=== PATIENT | female | born 1945 | race Caucasian/White ===

== ENCOUNTER 2017-03-14 13:27 | Inpatient (IN) | payer MEDICARE, OTHER ==
[2017-03-14] MEDS ORDERED: IV VANCOMYCIN PER PHARMACY 1 EACH MISC MISCELLANE PRN (14:10)
[2017-03-14] MEDS ORDERED: SODIUM CHLORIDE 0.9% 1,000 ML IV STA (14:10)
[2017-03-14] MEDS ORDERED: KETOROLAC 30 MG/ML 1 ML VIAL IVP STA (14:11)
[2017-03-14] MEDS ORDERED: ACETAMINOPHEN IV (For NPO) 1,000 MG in EMPTY BAG 1 BAG IVPB STA (14:11)
[2017-03-14] MEDS ORDERED: VANCOMYCIN 1,500 MG in SODIUM CHLORIDE 0.9% 250 ML IVPB STA (14:17)
--- NOTE | 2017-03-14 14:23 | ED ---
General Adult HPI - General Chief complaint: Recheck/Abnormal Lab/Rx Stated complaint: Back Pain Time Seen by Provider: 03/14/17 13:49 Source: patient, RN notes reviewed, old records reviewed Mode of arrival: ambulatory Limitations: no limitations - History of Present Illness Initial comments: This is a 71-year-old female here for evaluation. This patient's presenting for evaluation of back pain, erythema. Cellulitis. Patient does have abscess, started on antibiotics yesterday, no drainage. No fevers. This increasing redness to the area. She has been taking antibiotics as prescribed with what she thinks worsening symptoms. - Related Data Home Medications Medication Instructions Recorded Confirmed Alendronate Sodium [Fosamax] 70 mg PO TU 03/14/17 03/14/17 Atorvastatin [Lipitor] 10 mg PO EMANUEL 03/14/17 03/14/17 Cholecalciferol [Vitamin D3] 1,000 unit PO DAILY 03/14/17 03/14/17 Levothyroxine Sodium [Synthroid] 100 mcg PO MOTUWETHFR 03/14/17 03/14/17 Sulfamethox-Tmp 800-160Mg [Bactrim 1 tab PO BID 03/14/17 03/14/17 DS 800-160 mg] amLODIPine BESYLATE/BENAZEPRIL 1 cap PO DAILY 03/14/17 03/14/17 [amLODIPine BESYLATE/BENAZEPRIL 5-20 mg] Allergies Allergy/AdvReac Type Severity Reaction Status Date / Time sulfamethoxazole AdvReac Abdominal Verified 03/14/17 14:30 [From Bactrim] Pain trimethoprim [From Bactrim] AdvReac Abdominal Verified 03/14/17 14:30 Pain Review of Systems ROS Statement: Those systems with pertinent positive or pertinent negative responses have been documented in the HPI. ROS Other: All systems not noted in ROS Statement are negative. Past Medical History Past Medical History: Hyperlipidemia, Thyroid Disorder History of Any Multi-Drug Resistant Organisms: None Reported Past Surgical History: Back Surgery, Hysterectomy Past Psychological History: No Psychological Hx Reported Smoking Status: Never smoker Past Alcohol Use History: None Reported Past Drug Use History: None Reported General Exam - General Exam Comments Initial Comments: This severe cellulitis with erythema and warmth to right posterior back Limitations: no limitations General appearance: alert, in no apparent distress Head exam: Present: atraumatic, normocephalic, normal inspection Eye exam: Present: normal appearance, PERRL, EOMI. Absent: scleral icterus, conjunctival injection, periorbital swelling ENT exam: Present: normal exam, mucous membranes moist Neck exam: Present: normal inspection. Absent: tenderness, meningismus, lymphadenopathy Respiratory exam: Present: normal lung sounds bilaterally. Absent: respiratory distress, wheezes, rales, rhonchi, stridor Cardiovascular Exam: Present: regular rate, normal rhythm, normal heart sounds. Absent: systolic murmur, diastolic murmur, rubs, gallop, clicks GI/Abdominal exam: Present: soft, normal bowel sounds. Absent: distended, tenderness, guarding, rebound, rigid Extremities exam: Present: normal inspection, full ROM, normal capillary refill. Absent: tenderness, pedal edema, joint swelling, calf tenderness Back exam: Present: normal inspection Neurological exam: Present: alert, oriented X3, CN II-XII intact Psychiatric exam: Present: normal affect, normal mood Skin exam: Present: warm, dry, intact, normal color. Absent: rash Course Vital Signs 03/14/17 03/14/17 13:29 14:40 Temperature 98.1 F 98.2 F Pulse Rate 98 92 Respiratory 20 16 Rate Blood Pressure 146/68 137/65 O2 Sat by Pulse 99 99 Oximetry - Reevaluation(s) Reevaluation #1: 03/14/17 15:22 Patient is in no acute distress EKG Findings - EKG Comments: EKG Findings:: EKG shows normal sinus at a rate of 99, OK 172, QRS 86, QTC 400 Medical Decision Making - Medical Decision Making 71 female the ER for evaluation. Patient was is here for evaluation of back pain. Worsening infection of back. Patient was started on Bactrim yesterday for this abscess. Patient's abscess is growing in size, erythematous growing in size and spreading around her back. Patient will be admitted for IV antibiotics and surgical evaluation - Lab Data Result diagrams: 03/14/17 14:30 03/14/17 14:30 Lab Results 03/14/17 03/14/17 03/14/17 Range/Units 14:30 14:30 14:30 WBC 10.7 H (3.8-10.6) k/uL RBC 4.10 (3.80-5.40) m/uL Hgb 13.3 (11.4-16.0) gm/dL Hct 38.5 (34.0-46.0) % MCV 93.9 (80.0-100.0) fL MCH 32.4 (25.0-35.0) pg MCHC 34.4 (31.0-37.0) g/dL RDW 12.1 (11.5-15.5) % Plt Count 210 (150-450) k/uL Neutrophils % 88 % Lymphocytes % 5 % Monocytes % 5 % Eosinophils % 1 % Basophils % 0 % Neutrophils # 9.3 H (1.3-7.7) k/uL Lymphocytes # 0.5 L (1.0-4.8) k/uL Monocytes # 0.5 (0-1.0) k/uL Eosinophils # 0.1 (0-0.7) k/uL Basophils # 0.0 (0-0.2) k/uL PT (9.0-12.0) sec INR (<1.2) APTT (22.0-30.0) sec Sodium 139 (137-145) mmol/L Potassium 4.5 (3.5-5.1) mmol/L Chloride 103 (98-107) mmol/L Carbon Dioxide 23 (22-30) mmol/L Anion Gap 13 mmol/L BUN 9 (7-17) mg/dL Creatinine 0.70 (0.52-1.04) mg/dL Est GFR (MDRD) Af Amer >60 (>60 ml/min/1.73 sqM) Est GFR (MDRD) Non-Af >60 (>60 ml/min/1.73 sqM) Glucose 129 H (74-99) mg/dL Plasma Lactic Acid Francis (0.7-2.0) mmol/L Calcium 9.3 (8.4-10.2) mg/dL Phosphorus 2.7 (2.5-4.5) mg/dL Magnesium 1.8 (1.6-2.3) mg/dL Total Bilirubin 1.2 (0.2-1.3) mg/dL AST 35 (14-36) U/L ALT 29 (9-52) U/L Alkaline Phosphatase 79 (38-126) U/L Total Creatine Kinase 69 (30-135) U/L CK-MB (CK-2) 0.6 (0.0-2.4) ng/mL CK-MB (CK-2) Rel Index 0.9 Total Protein 7.1 (6.3-8.2) g/dL Albumin 4.1 (3.5-5.0) g/dL 03/14/17 03/14/17 Range/Units 14:30 14:30 WBC (3.8-10.6) k/uL RBC (3.80-5.40) m/uL Hgb (11.4-16.0) gm/dL Hct (34.0-46.0) % MCV (80.0-100.0) fL MCH (25.0-35.0) pg MCHC (31.0-37.0) g/dL RDW (11.5-15.5) % Plt Count (150-450) k/uL Neutrophils % % Lymphocytes % % Monocytes % % Eosinophils % % Basophils % % Neutrophils # (1.3-7.7) k/uL Lymphocytes # (1.0-4.8) k/uL Monocytes # (0-1.0) k/uL Eosinophils # (0-0.7) k/uL Basophils # (0-0.2) k/uL PT 10.6 (9.0-12.0) sec INR 1.0 (<1.2) APTT 23.4 (22.0-30.0) sec Sodium (137-145) mmol/L Potassium (3.5-5.1) mmol/L Chloride (98-107) mmol/L Carbon Dioxide (22-30) mmol/L Anion Gap mmol/L BUN (7-17) mg/dL Creatinine (0.52-1.04) mg/dL Est GFR (MDRD) Af Amer (>60 ml/min/1.73 sqM) Est GFR (MDRD) Non-Af (>60 ml/min/1.73 sqM) Glucose (74-99) mg/dL Plasma Lactic Acid Francis 1.6 (0.7-2.0) mmol/L Calcium (8.4-10.2) mg/dL Phosphorus (2.5-4.5) mg/dL Magnesium (1.6-2.3) mg/dL Total Bilirubin (0.2-1.3) mg/dL AST (14-36) U/L ALT (9-52) U/L Alkaline Phosphatase (38-126) U/L Total Creatine Kinase (30-135) U/L CK-MB (CK-2) (0.0-2.4) ng/mL CK-MB (CK-2) Rel Index Total Protein (6.3-8.2) g/dL Albumin (3.5-5.0) g/dL Disposition Clinical Impression: Cellulitis, Failure of outpatient treatment Disposition: ADMITTED IP TO THIS HOSP Condition: Good Referrals: Navid Mehta DO [Primary Care Provider] - 1-2 days
[2017-03-14 14:39] LABS: Basophils % (A) 0 %; CH 31.9; CHCM 34.1; Eosinophils # (A) 0.1 k/uL (0-0.7); Eosinophils % (A) 1 %; HCT 38.5 % (34.0-46.0); HDW 2.47; HGB 13.3 gm/dL (11.4-16.0); Luc # (Auto) 0.17; Luc % (Auto) 2; Lymphocytes # (A) 0.5 k/uL (1.0-4.8); Lymphocytes % (A) 5 %; MCH 32.4 pg (25.0-35.0); MCHC 34.4 g/dL (31.0-37.0); MCV 93.9 fL (80.0-100.0); Mean Platelet Volume 7.4; Monocytes # (A) 0.5 k/uL (0-1.0); Monocytes % (A) 5 %; Neutrophils # (A) 9.3 k/uL (1.3-7.7); Neutrophils % (A) 88 %; RDW 12.1 % (11.5-15.5); WBC 10.7 k/uL (3.8-10.6); WBC (Perox) 10.92
[2017-03-14 14:55] LABS: ALT 29 U/L (9-52); AST 35 U/L (14-36); Alkaline Phosphatase 79 U/L (38-126); Anion Gap 13 mmol/L; Blood Urea Nitrogen 9 mg/dL (7-17); Calcium 9.3 mg/dL (8.4-10.2); Carbon Dioxide 23 mmol/L (22-30); Chloride 103 mmol/L (98-107); Glucose 129 mg/dL (74-99); Magnesium 1.8 mg/dL (1.6-2.3); Non-African American GFR(MDRD) >60 (>60 ml/min/1.73 sqM); Phosphorous 2.7 mg/dL (2.5-4.5); Sodium 139 mmol/L (137-145); Total Bilirubin 1.2 mg/dL (0.2-1.3); Total Protein 7.1 g/dL (6.3-8.2)
[2017-03-14 14:56] LABS: Potassium 4.5 mmol/L (3.5-5.1)
[2017-03-14 15:06] LABS: Creatine Kinase MB 0.6 ng/mL (0.0-2.4)
[2017-03-14 15:12] LABS: Partial Thromboplastin Time 23.4 sec (22.0-30.0); Prothrombin Time 10.6 sec (9.0-12.0)
[2017-03-14] MEDS ORDERED: ATORVASTATIN 10 MG TAB PO SCH (18:00)
[2017-03-14 18:34] VITALS: BMI 25.2
[2017-03-15] MEDS: VANCOMYCIN 1,500 MG in SODIUM CHLORIDE 0.9% 250 ML IVPB SCH ×3 (00:05→23:52)
[2017-03-15] MEDS: HYDROmorphone 1 MG/ML 1 ML SYRINGE IVP PRN (03:06)
[2017-03-15] MEDS: LEVOTHYROXINE 100 MCG TAB PO SCH (06:04)
[2017-03-15] MEDS: amLODIPine 5 MG TAB PO SCH (08:18)
[2017-03-15] MEDS: ENOXAPARIN 40 MG/0.4 ML SYRINGE SQ SCH (08:18)
[2017-03-15] MEDS: LISINOPRIL 20 MG TAB PO SCH (08:18)
[2017-03-15] MEDS: CHOLECALCIFEROL 1,000 UNIT TAB PO SCH (08:18)
[2017-03-15] MEDS: PANTOPRAZOLE 40 MG TABLET PO SCH (08:18)
[2017-03-15] MEDS: HYDROcodone/APAP 5-325MG 1 EACH TAB PO PRN ×2 (08:31→16:25)
[2017-03-15 08:36] LABS: Basophils % (A) 0 %; CH 32.4; CHCM 33.4; Eosinophils # (A) 0.1 k/uL (0-0.7); Eosinophils % (A) 2 %; HDW 2.47; HGB 11.2 gm/dL (11.4-16.0); Luc # (Auto) 0.13; Luc % (Auto) 2; Lymphocytes # (A) 0.9 k/uL (1.0-4.8); Lymphocytes % (A) 14 %; MCHC 31.9 g/dL (31.0-37.0); MCV 97.4 fL (80.0-100.0); Mean Platelet Volume 7.7; Monocytes # (A) 0.4 k/uL (0-1.0); Monocytes % (A) 7 %; Neutrophils # (A) 4.6 k/uL (1.3-7.7); Neutrophils % (A) 75 %; RDW 12.8 % (11.5-15.5); WBC 6.1 k/uL (3.8-10.6)
[2017-03-15 08:50] LABS: Anion Gap 8 mmol/L; Blood Urea Nitrogen 9 mg/dL (7-17); Calcium 8.3 mg/dL (8.4-10.2); Carbon Dioxide 25 mmol/L (22-30); Chloride 107 mmol/L (98-107); Glucose 83 mg/dL (74-99); Non-African American GFR(MDRD) >60 (>60 ml/min/1.73 sqM); Potassium 3.6 mmol/L (3.5-5.1); Sodium 140 mmol/L (137-145)
--- NOTE | 2017-03-15 10:27 | P.CONS ---
History of Present Illness - Reason for Consult Consult date: 03/15/17 Abscess, cellulitis - History of Present Illness This is a 71-year-old female. She states she was driving to [employer] on March 08 and noticed that there was something bothering her at her waistband on her back right side. The area was reddened and very tender and continued to get bigger over the past week. She went to [facility] and was diagnosed with cellulitis and started on Bactrim. She states that after she started Bactrim she had diarrhea, headache and nausea and the area on her back continued to worsen with increased redness, swelling and drainage. She came into [facility] emergency center on March 14 for evaluation. She was found to be afebrile with white count of 10.7. Blood cultures status received. She was started on vancomycin and admitted to the [facility] floor. Consult with general surgeon, Dr. Cevallos is in place. Patient states this started out as just a hot pimple. She also has had chills and sweats are itchy denies any previous history of MRSA and is no previous abscess. Review of Systems All systems: negative Constitutional: Reports chills, Reports fatigue, Reports fever, Reports malaise , Reports sweats Eyes: denies blurred vision, denies pain, denies loss of vision Ears, nose, mouth and throat: Denies dental pain, Denies headache, Denies mouth pain, Denies sore throat, Denies vertigo Cardiovascular: Denies chest pain, Denies dyspnea on exertion, Denies edema, Denies leg edema, Denies lightheadedness, Denies shortness of breath, Denies syncope Respiratory: Denies cough, Denies cough with sputum, Denies dyspnea, Denies excessive sputum, Denies hemoptysis Gastrointestinal: Denies abdominal pain, Denies diarrhea, Denies nausea, Denies vomiting Genitourinary: Denies dysuria, Denies hematuria, Denies urgency, Denies urinary frequency Musculoskeletal: Denies muscle weakness, Denies myalgias Integumentary: Reports wounds, Denies pruritus, Denies rash Neurological: Denies numbness, Denies weakness Psychiatric: Denies anxiety, Denies depression Endocrine: Denies fatigue, Denies weight change Past Medical History Past Medical History: Hyperlipidemia, Hypertension, Thyroid Disorder History of Any Multi-Drug Resistant Organisms: None Reported Past Surgical History: Back Surgery, Hysterectomy Past Anesthesia/Blood Transfusion Reactions: No Reported Reaction Past Psychological History: No Psychological Hx Reported Smoking Status: Never smoker Past Alcohol Use History: None Reported Additional Past Alcohol Use History / Comment(s): Patient is a lifelong nonsmoker, no marijuana, medical marijuana, street drug or alcohol use. 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 There is a cat in the home and outdoor rabbits. Past Drug Use History: None Reported Medications and Allergies Home Medications Medication Instructions Recorded Confirmed Type Alendronate Sodium [Fosamax] 70 mg PO TU 03/14/17 03/14/17 History Atorvastatin [Lipitor] 10 mg PO EMANUEL 03/14/17 03/14/17 History Cholecalciferol [Vitamin D3] 1,000 unit PO DAILY 03/14/17 03/14/17 History Levothyroxine Sodium [Synthroid] 100 mcg PO MOTUWETHFR 03/14/17 03/14/17 History Sulfamethox-Tmp 800-160Mg [Bactrim 1 tab PO BID 03/14/17 03/14/17 History DS 800-160 mg] amLODIPine BESYLATE/BENAZEPRIL 1 cap PO DAILY 03/14/17 03/14/17 History [amLODIPine BESYLATE/BENAZEPRIL 5-20 mg] Allergies Allergy/AdvReac Type Severity Reaction Status Date / Time sulfamethoxazole AdvReac Abdominal Verified 03/14/17 14:30 [From Bactrim] Pain trimethoprim [From Bactrim] AdvReac Abdominal Verified 03/14/17 14:30 Pain Physical Exam Vitals: Vital Signs Temp Pulse Pulse Resp BP BP Pulse Ox 03/15/17 07:00 99.4 F 78 16 101/53 94 L 03/14/17 23:24 99.1 F 76 16 107/57 98 03/14/17 19:01 98.1 F 92 20 121/72 96 03/14/17 15:31 92 18 129/60 97 03/14/17 14:40 98.2 F 92 16 137/65 99 03/14/17 13:29 98.1 F 98 20 146/68 99 Intake and Output 03/14/17 03/15/17 03/15/17 22:59 06:59 14:59 Intake Total 1500 Balance 1500 Intake: Intake, IV Titration 1500 Amount Sodium Chloride 0.9% 1, 1000 000 ml @ 100 mls/hr IV . Q10H [facility] Rx#:[id number] Vancomycin 1,500 mg In 250 Sodium Chloride 0.9% 250 ml @ 125 mls/hr IVPB ONCE [facility] Rx#:[id number] Vancomycin 1,500 mg In 250 Sodium Chloride 0.9% 250 ml @ 125 mls/hr IVPB Q12H [facility] Rx#:[id number] Other: Voiding Method Toilet Weight 75.296 kg Gen: This is a 71-year-old female. She is sitting up in bed and appears to be in no acute distress. HEENT: Head is atraumatic, normocephalic. Pupils equal, round. Sclerae is anicteric. Conjunctiva pink. NECK: Supple. No JVD. No lymphadenopathy. No thyromegaly. LUNGS: Clear to auscultation. No wheezes or rhonchi. No intercostal retractions. HEART: Regular rate and rhythm. No murmur. ABDOMEN: Soft. Bowel sounds are present. No masses. No tenderness. There is a large area of erythema and edema with purulent drainage from the right posterior flank area with extreme tenderness. EXTREMITIES: No pedal edema. No calf tenderness. Dorsalis pedis +2 bilaterally NEUROLOGICAL: Patient is awake, alert and oriented x3. Cranial nerves 2 through 12 are grossly intact. Results Results: Laboratory Results WBC 6.1 k/uL (3.8-10.6) 03/15/17 07:56 RBC 3.60 m/uL (3.80-5.40) L 03/15/17 07:56 Hgb 11.2 gm/dL (11.4-16.0) L 03/15/17 07:56 Hct 35.0 % (34.0-46.0) 03/15/17 07:56 MCV 97.4 fL (80.0-100.0) 03/15/17 07:56 MCH 31.0 pg (25.0-35.0) 03/15/17 07:56 MCHC 31.9 g/dL (31.0-37.0) 03/15/17 07:56 RDW 12.8 % (11.5-15.5) 03/15/17 07:56 Plt Count 197 k/uL (150-450) 03/15/17 07:56 Neutrophils % 75 % 03/15/17 07:56 Lymphocytes % 14 % 03/15/17 07:56 Monocytes % 7 % 03/15/17 07:56 Eosinophils % 2 % 03/15/17 07:56 Basophils % 0 % 03/15/17 07:56 Neutrophils # 4.6 k/uL (1.3-7.7) 03/15/17 07:56 Lymphocytes # 0.9 k/uL (1.0-4.8) L 03/15/17 07:56 Monocytes # 0.4 k/uL (0-1.0) 03/15/17 07:56 Eosinophils # 0.1 k/uL (0-0.7) 03/15/17 07:56 Basophils # 0.0 k/uL (0-0.2) 03/15/17 07:56 PT 10.6 sec (9.0-12.0) 03/14/17 14:30 INR 1.0 (<1.2) 03/14/17 14:30 APTT 23.4 sec (22.0-30.0) 03/14/17 14:30 Sodium 140 mmol/L (137-145) 03/15/17 07:56 Potassium 3.6 mmol/L (3.5-5.1) 03/15/17 07:56 Chloride 107 mmol/L (98-107) 03/15/17 07:56 Carbon Dioxide 25 mmol/L (22-30) 03/15/17 07:56 Anion Gap 8 mmol/L 03/15/17 07:56 BUN 9 mg/dL (7-17) 03/15/17 07:56 Creatinine 0.71 mg/dL (0.52-1.04) 03/15/17 07:56 Est GFR (MDRD) Af Amer >60 (>60 ml/min/1.73 sqM) 03/15/17 07:56 Est GFR (MDRD) Non-Af >60 (>60 ml/min/1.73 sqM) 03/15/17 07:56 Glucose 83 mg/dL (74-99) 03/15/17 07:56 Plasma Lactic Acid Francis 1.6 mmol/L (0.7-2.0) 03/14/17 14:30 Calcium 8.3 mg/dL (8.4-10.2) L 03/15/17 07:56 Phosphorus 2.7 mg/dL (2.5-4.5) 03/14/17 14:30 Magnesium 1.8 mg/dL (1.6-2.3) 03/14/17 14:30 Total Bilirubin 1.2 mg/dL (0.2-1.3) 03/14/17 14:30 AST 35 U/L (14-36) 03/14/17 14:30 ALT 29 U/L (9-52) 03/14/17 14:30 Alkaline Phosphatase 79 U/L (38-126) 03/14/17 14:30 Total Creatine Kinase 69 U/L (30-135) 03/14/17 14:30 CK-MB (CK-2) 0.6 ng/mL (0.0-2.4) 03/14/17 14:30 CK-MB (CK-2) Rel Index 0.9 03/14/17 14:30 Total Protein 7.1 g/dL (6.3-8.2) 03/14/17 14:30 Albumin 4.1 g/dL (3.5-5.0) 03/14/17 14:30 CBC & Chem 7: 03/15/17 07:56 03/15/17 07:56 Labs: Abnormal Lab Results - Last 24 Hours (Table) 03/14/17 03/14/17 03/15/17 Range/Units 14:30 14:30 07:56 WBC 10.7 H (3.8-10.6) k/uL RBC 3.60 L (3.80-5.40) m/uL Hgb 11.2 L (11.4-16.0) gm/dL Neutrophils # 9.3 H (1.3-7.7) k/uL Lymphocytes # 0.5 L 0.9 L (1.0-4.8) k/uL Glucose 129 H (74-99) mg/dL Calcium (8.4-10.2) mg/dL 03/15/17 Range/Units 07:56 WBC (3.8-10.6) k/uL RBC (3.80-5.40) m/uL Hgb (11.4-16.0) gm/dL Neutrophils # (1.3-7.7) k/uL Lymphocytes # (1.0-4.8) k/uL Glucose (74-99) mg/dL Calcium 8.3 L (8.4-10.2) mg/dL Assessment and Plan Plan: This is a 71-year-old female who presents to the hospital with sepsis and soft tissue abscess and cellulitis to the right posterior flank area that failed outpatient treatment. Patient is currently on vancomycin with some improvement. Consult in place for a general surgeon for surgical intervention. Wound cultures will be obtained and culture report from [facility] will be obtained. Blood cultures status received. Further recommendations as patient progresses. The above dictated assessment and findings were discussed with Dr. Britt. The impression and plan of care have been directed as dictated. Rose Vazquez nurse practitioner acting as scribe for Dr. Britt.
--- NOTE | 2017-03-15 10:37 | P.GSCN ---
History of Present Illness Consult date: 03/15/17 Requesting physician: Evelyn Jennings History of present illness: 71-year-old female who presented on the day of admission to the emergency room to be evaluated for a chief complaint of developing pain with redness involving the right buttocks onset March 08 patient stated it had initially started out small there was some redness went to a retreat noted that it did not improve. Patient stated while she was on the retreat denied fever chills but did note that there was a significant amount of tenderness with increased redness to the site with no improvement Came back this past WednesdayMarch 13 the area became increasingly more tender red and swollen and hard involving the right buttock extending into the back presented to the urgent care clinic who put the patient on Bactrim. Patient stated at the clinic they did do wound cultures. Patient stated the Bactrim "made her feel sick" became concerned presented to the emergency room with no noted improvement the right buttocks cellulitis abscess area was increasing in size. Patient denied any injury denied any prior episodes. The right buttocks dressing moderate amount of soupy creamy secretions noted on the dressing no odor noted palpable firm abscess noted. Area red positive tenderness. Patient was seen in the emergency room white count was 10.7 afebrile. No skin rash noted. Patient gives no significant past medical history is not a diabetic there is no significant past surgical history. Patient does give a history of January this year on the left Nare developed a sore inside the nose "it spontaneously drained a large amount of nasal secretions. went away on its own "no further episodes Review of Systems Essentially unremarkable except as mentioned in the present illness Past Medical History Past Medical History: Hyperlipidemia, Hypertension, Thyroid Disorder History of Any Multi-Drug Resistant Organisms: None Reported Past Surgical History: Back Surgery, Hysterectomy Past Anesthesia/Blood Transfusion Reactions: No Reported Reaction Past Psychological History: No Psychological Hx Reported Smoking Status: Never smoker Past Alcohol Use History: None Reported Past Drug Use History: None Reported Medications and Allergies Home Medications Medication Instructions Recorded Confirmed Type Alendronate Sodium [Fosamax] 70 mg PO TU 03/14/17 03/14/17 History Atorvastatin [Lipitor] 10 mg PO EMANUEL 03/14/17 03/14/17 History Cholecalciferol [Vitamin D3] 1,000 unit PO DAILY 03/14/17 03/14/17 History Levothyroxine Sodium [Synthroid] 100 mcg PO MOTUWETHFR 03/14/17 03/14/17 History Sulfamethox-Tmp 800-160Mg [Bactrim 1 tab PO BID 03/14/17 03/14/17 History DS 800-160 mg] amLODIPine BESYLATE/BENAZEPRIL 1 cap PO DAILY 03/14/17 03/14/17 History [amLODIPine BESYLATE/BENAZEPRIL 5-20 mg] Allergies Allergy/AdvReac Type Severity Reaction Status Date / Time sulfamethoxazole AdvReac Abdominal Verified 03/14/17 14:30 [From Bactrim] Pain trimethoprim [From Bactrim] AdvReac Abdominal Verified 03/14/17 14:30 Pain Surgical - Exam Vital Signs Temp Pulse Resp BP Pulse Ox 98.1 F 98 20 146/68 99 03/14/17 13:29 03/14/17 13:29 03/14/17 13:29 03/14/17 13:29 03/14/17 13:29 GENERAL APPEARANCE: 71-year-old female patient is alert, oriented, in no acute distress. Pleasant cooperative VITAL SIGNS: Reviewed HEENT: Head is normocephalic and atraumatic. Pupils are equal and reactive. The nares are patent. Oropharynx is clear without lesions. NECK: Supple without lymphadenopathy. Traches midline. HEART: S1, S2. Regular rate and rhythm. No murmur noted denying chest pain when questioning LUNGS: No crackles or wheezes are heard. Adequate air movement bilaterally on room air sats 94% no shortness of breath noted ABDOMEN: Soft, nontender, nondistended with good bowel sounds. No peritoneal signs. No palpable organomegaly or masses. No reports of nausea vomiting urinating no difficulty denying any burning on urination frequency urgency EXTREMITIES: Normal skin color and turgor. No cyanosis, rash, ulceration, clubbing or edema. Radial pedal pulses are 2/4 bilaterally. NEUROLOGICAL: No focal deficits. Strength and sensation are grossly intact. Skin right buttocks extending into the sacral area firm red positive tenderness abscess with a moderate amount. Drainage from the center of the wound Results - Labs 03/15/17 07:56 03/15/17 07:56 Abnormal Lab Results - Last 24 Hours (Table) 03/14/17 03/14/17 03/15/17 Range/Units 14:30 14:30 07:56 WBC 10.7 H (3.8-10.6) k/uL RBC 3.60 L (3.80-5.40) m/uL Hgb 11.2 L (11.4-16.0) gm/dL Neutrophils # 9.3 H (1.3-7.7) k/uL Lymphocytes # 0.5 L 0.9 L (1.0-4.8) k/uL Glucose 129 H (74-99) mg/dL Calcium (8.4-10.2) mg/dL 03/15/17 Range/Units 07:56 WBC (3.8-10.6) k/uL RBC (3.80-5.40) m/uL Hgb (11.4-16.0) gm/dL Neutrophils # (1.3-7.7) k/uL Lymphocytes # (1.0-4.8) k/uL Glucose (74-99) mg/dL Calcium 8.3 L (8.4-10.2) mg/dL Diabetes panel 03/14/17 03/15/17 Range/Units 14:30 07:56 Sodium 139 140 (137-145) mmol/L Potassium 4.5 3.6 (3.5-5.1) mmol/L Chloride 103 107 (98-107) mmol/L Carbon Dioxide 23 25 (22-30) mmol/L BUN 9 9 (7-17) mg/dL Creatinine 0.70 0.71 (0.52-1.04) mg/dL Glucose 129 H 83 (74-99) mg/dL Calcium 9.3 8.3 L (8.4-10.2) mg/dL AST 35 (14-36) U/L ALT 29 (9-52) U/L Alkaline Phosphatase 79 (38-126) U/L Total Protein 7.1 (6.3-8.2) g/dL Albumin 4.1 (3.5-5.0) g/dL Calcium panel 03/14/17 03/15/17 Range/Units 14:30 07:56 Calcium 9.3 8.3 L (8.4-10.2) mg/dL Phosphorus 2.7 (2.5-4.5) mg/dL Albumin 4.1 (3.5-5.0) g/dL Pituitary panel 03/14/17 03/15/17 Range/Units 14:30 07:56 Sodium 139 140 (137-145) mmol/L Potassium 4.5 3.6 (3.5-5.1) mmol/L Chloride 103 107 (98-107) mmol/L Carbon Dioxide 23 25 (22-30) mmol/L BUN 9 9 (7-17) mg/dL Creatinine 0.70 0.71 (0.52-1.04) mg/dL Glucose 129 H 83 (74-99) mg/dL Calcium 9.3 8.3 L (8.4-10.2) mg/dL Adrenal panel 03/14/17 08 Range/Units 14:30 07:56 Sodium 139 140 (137-145) mmol/L Potassium 4.5 3.6 (3.5-5.1) mmol/L Chloride 103 107 (98-107) mmol/L Carbon Dioxide 23 25 (22-30) mmol/L BUN 9 9 (7-17) mg/dL Creatinine 0.70 0.71 (0.52-1.04) mg/dL Glucose 129 H 83 (74-99) mg/dL Calcium 9.3 8.3 L (8.4-10.2) mg/dL Total Bilirubin 1.2 (0.2-1.3) mg/dL AST 35 (14-36) U/L ALT 29 (9-52) U/L Alkaline Phosphatase 79 (38-126) U/L Total Protein 7.1 (6.3-8.2) g/dL Albumin 4.1 (3.5-5.0) g/dL Assessment and Plan Plan: impression Present on admission right body extending into the sacral area abscess new-onset hypertension essential Hypothyroid on supplements Present on admission leukocytosis suspect reactive Plan Obtain culture report done at express clinic Consult infectious disease Dr. Britt recommendations pending Pain control DVT and GI prophylaxis Resume home meds as appropriate IV for hydration Continue IV vancomycin Further surgical recommendations pending Thank you for allowing us to participate in the surgical management of your patient further surgical recommendations pending will follow the clinical course closely The above impression and plan of care have been discussed and directed by signing physician. Leatha Kee nurse practitioner acting as scribe for signing physician.
[2017-03-15 12:00] LABS: Hemoglobin A1C 5.6 % (4.2-6.1)
[2017-03-15] MEDS: MULTIVITAMINS, THERA 1 EACH TAB PO SCH (12:43)
[2017-03-15] MEDS: SODIUM CHLORIDE 0.9% 1,000 ML IV SCH (12:43)
--- NOTE | 2017-03-15 13:00 | HP ---
The chief complaints are pain and swelling and erythema and discharge on the right lower back. HISTORY OF PRESENT ILLNESS; This is a 71-year-old woman with a past medical history of multiple medical problems, hypertension, hyperlipidemia, hyperthyroidism, history of back surgery, being followed by prior physician elsewhere as recently moved to the area. The patient would like to see Dr. Navid Mehta in the outpatient setting. The patient is complaining of pain and swelling in the right lower quadrant. Patient was taking outpatient Bactrim because of lack of improvement. Patient came to [facility], admitted for further evaluation and treatment. There is no history of any fever, rigors , chills. Patient was started on IV vancomycin at this time. Patient has taken Bactrim as mentioned earlier. PAST MEDICAL HISTORY: History of hypertension, hyperlipidemia, hypothyroidism. Medications prior to admission include: 1. Amlodipine. 2. Benazepril 5-20 p.o. daily. 3. Bactrim DS 1 p.o. b.i.d. 4. Synthroid 100 mcg Wednesday, Wednesday, Wednesday, , Wednesday. 5. Vitamin D3 one thousand daily. 5. Lipitor 10 mg daily. 6. Fosamax 70 mg . Allergies are BACTRIM. FAMILY HISTORY: No history of heart disease or strokes in the family. 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 REVIEW OF SYSTEMS: ENT: No diminished hearing or diminished vision. CARDIOVASCULAR SYSTEM: No angina, no palpitations. RESPIRATORY SYSTEM: No cough. GI: No nausea. : No dysuria. NERVOUS SYSTEM: No numbness or weakness. ALLERGY/IMMUNOLOGY: No asthma or hayfever. MUSCULOSKELETAL: As mentioned earlier. HEMATOLOGY: No history of anemia. ENDOCRINE: No history of diabetes mellitus, hypothyroid. CONSTITUTIONAL: As mentioned earlier. DERMATOLOGY: Negative. RHEUMATOLOGY: Negative. PSYCHIATRY: As mentioned earlier. PHYSICAL EXAMINATION: Alert and oriented x3. Pulse is 92, blood pressure 120/72, respirations 20, temperature is 98.4, pulse ox 96% on room air. HEENT: Conjunctivae normal, oral mucosa moist. NECK: No jugular venous distension, no lymph node enlargement. RESPIRATORY: Breath sounds diminished at the bases, no rhonchi, no crackles. ABDOMEN: Soft, nontender, no mass palpable. LEGS: No edema, no swelling. NERVOUS SYSTEM: Higher functions as mentioned, moves all 4 limbs. No focal motor deficits. LYMPHATICS: No lymph node enlargement in the neck, axillae or groin. SKIN: Significant erythema, tenderness and discharge from the right lower lateral part of the back present. The lab investigations are WBC 10.7 and glucose 129. ASSESSMENT: 1. Abscess and cellulitis of the right lower part with systemic inflammatory response syndrome. 2. Increased WBC. 3. Increased random blood sugar. 4. Hypertension. 5. Hyperlipidemia. 6. Hypothyroidism. 7. Back Surgery. RECOMMENDATION: In this 71-year-old woman who presented with multiple complex medical issues, will monitor the patient closely. Continue with the current medications. Continue with IV vancomycin. Cultures, DVT prophylaxis, GI prophylaxis. I would also recommend Surgical evaluation. Resume the home medications. Guarded prognosis. Further recommendations to follow. MTDD
--- NOTE | 2017-03-15 21:48 | P.CON ---
Consult Note - . Consult date: 03/15/17 Assessment/Plan:: This is a 71-year-old female. She states she was driving to [place] [employer] on March 08 and noticed that there was something bothering her at her waistband on her back right side. The area was reddened and very tender and continued to get bigger over the past week. She went to [facility] and was diagnosed with cellulitis and started on Bactrim. She states that after she started Bactrim she had diarrhea, headache and nausea and the area on her back continued to worsen with increased redness, swelling and drainage. She came into [facility] on March 14 for evaluation. She was found to be afebrile with white count of 10.7. Blood cultures status received. She was started on vancomycin and admitted to the [facility] floor. Consult with general surgeon, Dr. Cevallos is in place. Patient states this started out as just a hot pimple. She also has had chills and sweats are itchy denies any previous history of MRSA and is no previous abscess. Please see the consult note is dictated by nurse practitioner Mrs. Rose Vazquez. 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 She does relate that while she was at [place] she developed a pimple on her nose that eventually drained. Now about a week later developed the abscess to her left flank. They're likely related. She however does not have evidence of diabetes. She is quite miserable. Is being seen by the surgeon. Will need surgical incision and drainage of the site for resolution. Depending on its size may also do well once infection is improved with the wound VAC or advanced dressings depending on the overall size of the abscess. Antibiotic therapy as noted vancomycin and Ancef is added until cultures are available. Local wound care is dry dressing for drainage control. Pain control. I agree with evaluation, assessment and plan as dictated by nurse practitioner Mrs. Rose Vazquez.
[2017-03-16] MEDS: LEVOTHYROXINE 100 MCG TAB PO SCH (05:38)
[2017-03-16] MEDS: PANTOPRAZOLE 40 MG TABLET PO SCH (08:26)
[2017-03-16] MEDS: ENOXAPARIN 40 MG/0.4 ML SYRINGE SQ SCH (08:26)
[2017-03-16] MEDS: amLODIPine 5 MG TAB PO SCH (08:26)
[2017-03-16] MEDS: CHOLECALCIFEROL 1,000 UNIT TAB PO SCH (08:26)
[2017-03-16] MEDS: LISINOPRIL 20 MG TAB PO SCH (08:26)
[2017-03-16] MEDS: SODIUM CHLORIDE 0.9% 1,000 ML IV SCH (08:29)
[2017-03-16 11:27] LABS: Anion Gap 13 mmol/L; Blood Urea Nitrogen 8 mg/dL (7-17); Calcium 8.8 mg/dL (8.4-10.2); Carbon Dioxide 18 mmol/L (22-30); Chloride 110 mmol/L (98-107); Glucose 84 mg/dL (74-99); Non-African American GFR(MDRD) >60 (>60 ml/min/1.73 sqM); Potassium 3.9 mmol/L (3.5-5.1); Sodium 141 mmol/L (137-145)
[2017-03-16] MEDS: HYDROmorphone 1 MG/ML 1 ML SYRINGE IVP PRN (12:08)
[2017-03-16] MEDS: MULTIVITAMINS, THERA 1 EACH TAB PO SCH (12:09)
[2017-03-16] MEDS: VANCOMYCIN 1,500 MG in SODIUM CHLORIDE 0.9% 250 ML IVPB SCH ×2 (12:09→23:54)
[2017-03-16 13:10] LABS: Basophils % (A) 0 %; CH 31.6; CHCM 33.9; Eosinophils # (A) 0.2 k/uL (0-0.7); Eosinophils % (A) 2 %; HCT 35.4 % (34.0-46.0); HDW 2.61; HGB 12.4 gm/dL (11.4-16.0); Luc # (Auto) 0.16; Luc % (Auto) 3; Lymphocytes % (A) 16 %; MCH 32.8 pg (25.0-35.0); MCHC 35.1 g/dL (31.0-37.0); MCV 93.7 fL (80.0-100.0); Mean Platelet Volume 8.6; Monocytes # (A) 0.4 k/uL (0-1.0); Monocytes % (A) 7 %; Neutrophils # (A) 4.4 k/uL (1.3-7.7); Neutrophils % (A) 72 %; RBC 3.78 m/uL (3.80-5.40); RDW 12.1 % (11.5-15.5); WBC 6.1 k/uL (3.8-10.6); WBC (Perox) 6.13
--- NOTE | 2017-03-16 14:17 | P.PN ---
Subjective 71-year-old female being seen and examined this morning. There is increased pain redness and tenderness at the right hip and buttocks. Patients being followed by infectious disease. Blood cultures are pending. Running a low- grade temp this morning of 99.1 there is an increase in the redness from the reference markings from the day before currently on IV vancomycin per infectious diseases recommendations patient reports having increased pain in the right buttocks Objective - Vital Signs Vital signs: Vital Signs Temp 99.1 F 03/16/17 07:00 Pulse 70 03/16/17 07:00 Resp 14 03/16/17 07:00 BP 116/72 03/16/17 07:00 Pulse Ox 96 03/16/17 07:00 Intake & Output 03/15/17 03/16/17 03/16/17 18:59 06:59 18:59 Intake Total 120 Balance 120 Intake: Oral 120 Other: Voiding Method Toilet # Voids 2 1 - Exam Physical exam 71-year-old female being seen this morning patient reports having increased pain the right hip site with more redness and more tenderness more drainage noted on the dressing Lungs are essentially clear with adequate air movement Heart S1-S2 audible and regular Abdomen soft nontender reports no nausea vomiting Extremities no edema noted - Labs CBC & Chem 7: 03/16/17 10:54 03/16/17 10:54 Labs: Abnormal Lab Results - Last 24 Hours (Table) 03/16/17 03/16/17 Range/Units 10:54 10:54 RBC 3.78 L (3.80-5.40) m/uL Chloride 110 H (98-107) mmol/L Carbon Dioxide 18 L (22-30) mmol/L Microbiology - Last 24 Hours (Table) 03/15/17 10:15 Gram Stain - Preliminary Back Wound Culture - Preliminary Presumptive Staph aureus 03/14/17 14:30 Blood Culture - Preliminary Blood No Growth after 24 hours 03/15/17 10:15 Anaerobic Culture - Preliminary Back Assessment and Plan Plan: impression Present on admission febrile leukocytosis sepsis suspect due to right buttock abscess new onset hypertension essential Hypothyroid on supplements Present on admission right posterior buttocks area extending into right flank with increase redness and tenderness with purulent drainage Plan Patient will be scheduled this afternoon at 5:00 for an incision and drainage by surgical service Consult infectious disease Dr. Britt recommendations noted Pain control DVT and GI prophylaxis Resume home meds as appropriate IV for hydration Continue IV vancomycin The above impression and plan of care have been discussed and directed by signing physician. Leatha Kee nurse practitioner acting as scribe for signing physician.
[2017-03-16 14:40] LABS: Manual Review Performed
[2017-03-16] MEDS ORDERED: IV FLUID CONTINUATION 1,000 ML IV ONE (16:48)
[2017-03-16] MEDS ORDERED: PROPOFOL 10 MG/ML 20 ML VIAL IV ONE (17:17)
[2017-03-16] MEDS ORDERED: fentaNYL (PF) 50 MCG/ML 2 ML AMP ONE (17:17)
[2017-03-16] MEDS ORDERED: MIDAZOLAM 2 MG/2 ML VIAL ONE (17:17)
[2017-03-16] MEDS ORDERED: ONDANSETRON 4 MG/2 ML VIAL ONE (17:17)
[2017-03-16] MEDS ORDERED: LIDOCAINE 1% INJ 10MG/ML (20 ML MDV) ONE (17:17)
[2017-03-16] MEDS ORDERED: BUPIVACAIN-EPI 0.5%-1:200,000 30 ML VIAL SQ ONE (17:40)
--- NOTE | 2017-03-16 17:47 | P.OP ---
Date of Procedure: 03/16/17 Preoperative Diagnosis: Right flank abscess Postoperative Diagnosis: Right flank abscess Procedure(s) Performed: Incision and drainage of right flank abscess Implants: Anesthesia: MAC Surgeon: Jono Cevallos Estimated Blood Loss (ml): 5 Pathology: other (Culture) Condition: stable Disposition: PACU Indications for Procedure: Operative Findings: Description of Procedure: A shunt placed on the operative table in the lateral position. Her right flank was prepped and draped usual fashion. The patient had a small area necrosis. The skin was anesthetized 1% local Xylocaine. Then a skin incision was made. There is a purulent pocket of pus. This was Cultured. The wound was then packed. We'll measured prostate 10 x 5 x 5 cm. The wound was packed with Kerlix wet-to-dry. Patient top she will was sent to recovery in stable condition.
[2017-03-16] MEDS ORDERED: NON-FORMULARY DRUG (Alendronate Sodium [Fosamax] 70 MG) PO SCH (17:58)
[2017-03-17] MEDS: LEVOTHYROXINE 100 MCG TAB PO SCH (06:06)
[2017-03-17] MEDS: PANTOPRAZOLE 40 MG TABLET PO SCH (08:06)
[2017-03-17] MEDS: CHOLECALCIFEROL 1,000 UNIT TAB PO SCH (08:06)
[2017-03-17] MEDS: LISINOPRIL 20 MG TAB PO SCH (08:06)
[2017-03-17] MEDS: amLODIPine 5 MG TAB PO SCH (08:06)
[2017-03-17] MEDS: ENOXAPARIN 40 MG/0.4 ML SYRINGE SQ SCH (08:06)
[2017-03-17 09:11] LABS: Basophils % (A) 0 %; CH 32.2; CHCM 33.4; Eosinophils # (A) 0.2 k/uL (0-0.7); Eosinophils % (A) 4 %; HCT 36.3 % (34.0-46.0); HDW 2.56; HGB 11.7 gm/dL (11.4-16.0); Luc # (Auto) 0.11; Luc % (Auto) 2; Lymphocytes # (A) 0.9 k/uL (1.0-4.8); Lymphocytes % (A) 19 %; MCH 31.3 pg (25.0-35.0); MCHC 32.3 g/dL (31.0-37.0); MCV 96.9 fL (80.0-100.0); Mean Platelet Volume 7.4; Monocytes # (A) 0.2 k/uL (0-1.0); Monocytes % (A) 5 %; Neutrophils # (A) 3.2 k/uL (1.3-7.7); Neutrophils % (A) 70 %; RBC 3.74 m/uL (3.80-5.40); RDW 12.8 % (11.5-15.5); WBC 4.6 k/uL (3.8-10.6)
[2017-03-17] MEDS: SODIUM CHLORIDE 0.9% 1,000 ML IV SCH (09:16)
[2017-03-17 09:19] LABS: Anion Gap 8 mmol/L; Blood Urea Nitrogen 8 mg/dL (7-17); Calcium 8.5 mg/dL (8.4-10.2); Carbon Dioxide 28 mmol/L (22-30); Chloride 106 mmol/L (98-107); Glucose 109 mg/dL (74-99); Non-African American GFR(MDRD) >60 (>60 ml/min/1.73 sqM); Potassium 3.9 mmol/L (3.5-5.1); Sodium 142 mmol/L (137-145)
--- NOTE | 2017-03-17 12:25 | PN ---
DATE OF SERVICE: 03/16/2017 The patient is a pleasant 71 -year-old white female who was admitted to the hospital with acute cellulitis and abscess of her right upper buttocks. The patient has been placed on IV antibiotics and is doing better today with some drainage. However, she awaits surgery sometime today. PHYSICAL EXAMINATION: Vital signs are stable. HEENT: Head is Normocephalic and atraumatic. Normal distribution of hair. Pupils equal, round, reactive to light and accommodation. Extraocular muscles are intact. Neck is supple. No JVD. Heart regular rate and rhythm. Abscess right buttocks extending up to the right hip, waistline area and down to the lower buttocks and posterior thigh. Central area of induration now has hole with copious amounts of purulent drainage. IMPRESSION: Acute cellulitis of the buttocks. PLAN: Surgical debridement today by Dr. Cevallos. Await cultures. Continue antibiotics. Await surgical debridement and I&D today. SHAE
--- NOTE | 2017-03-17 12:38 | PN ---
DATE OF SERVICE: 03/15/2017 Patient is a pleasant 71-year-old white female who is quite new to me. She was admitted for cellulitis of the right buttock with some deep induration and purulent drainage. She was apparently driving to [place] when she noticed some thing stinging her at her waistband. [place] like something was rubbing where she reached back and grabbed her back and immediately became swollen and draining after she squeezed the area. She has been self treating this with warm moist compresses and became it became very tender and much more enlarged where she went to the [facility] this weekend. She is not known to me as I am not her regular physician, but she wishes to establish in the office. I have agreed to take her on as a patient after seen by the hospitalist this weekend. PHYSICAL EXAM: She is alert and oriented x3. Neck is supple. No JVD. HEART: Regular rate and rhythm. LUNGS: Clear to auscultation. ABDOMEN: Soft, nontender, no rebound, rigidity or guarding. EXTREMITIES: No cyanosis, clubbing or jaundice. Skin with large area of erythema and induration on her right buttocks extending up to her right hip and cross down to her posterior thigh. There is a central area of purulent drainage, yellow as well. IMPRESSION: Acute cellulitis abscess of her right buttocks. PLAN: I&D Wednesday. Leave patient n.p.o. after midnight. Will continue IV vancomycin. Will await final cultures. Continue with infectious disease consultation by Dr. Britt. SHAE
[2017-03-17] MEDS: VANCOMYCIN 1,500 MG in SODIUM CHLORIDE 0.9% 250 ML IVPB SCH (13:02)
[2017-03-17] MEDS: MULTIVITAMINS, THERA 1 EACH TAB PO SCH (13:02)
[2017-03-17] MEDS: ceFAZolin 2 GM in SODIUM CHLORIDE 0.9% 100 ML IVPB SCH ×3 (15:10→23:58)
--- NOTE | 2017-03-17 15:19 | P.PN ---
Subjective 71-year-old female being seen on rounds this morning is up ambulating in the hallway "I can't believe how much less pain I have not that the areas been drained" patient did undergo an incision and drainage of the right flank abscess on the . Currently a dressing in place addressing moderate amount of serous drainage noted. Patient did point that she has developed on the left posterior upper thigh a pimple area red. Patient stated that the right flank abscess "it started out looking just like this". Patient's currently being followed by infectious disease as well as surgical service Objective - Vital Signs Vital signs: Vital Signs Temp 97.3 F L 03/17/17 15:00 Pulse 80 03/17/17 15:00 Resp 18 03/17/17 15:00 BP 122/70 03/17/17 15:00 Pulse Ox 98 03/17/17 15:00 Intake & Output 03/16/17 03/17/17 03/17/17 18:59 06:59 18:59 Intake Total 400 500 Output Total 10 Balance 390 500 Intake: IV 400 Oral 500 Output: Estimated Blood Loss 10 Other: Voiding Method Toilet Toilet # Voids 1 1 1 - Exam Physical exam 71-year-old female being seen this morning up ambulating in the hallway states there is less pain in the right flank feels better Lungs are essentially clear with adequate air movement no cough noted Heart S1-S2 audible and regular no murmur noted denying chest pain Abdomen soft nontender reports no nausea vomiting Extremities no edema noted - Labs CBC & Chem 7: 03/17/17 08:43 03/17/17 08:43 Labs: Abnormal Lab Results - Last 24 Hours (Table) 03/17/17 03/17/17 Range/Units 08:43 08:43 RBC 3.74 L (3.80-5.40) m/uL Lymphocytes # 0.9 L (1.0-4.8) k/uL Glucose 109 H (74-99) mg/dL Microbiology - Last 24 Hours (Table) 03/15/17 10:15 Anaerobic Culture - Preliminary Back 03/15/17 10:15 Gram Stain - Final Back Wound Culture - Final Staphylococcus aureus 03/16/17 17:46 Gram Stain - Preliminary Abdomen Wound Culture - Preliminary 03/16/17 17:46 Anaerobic Culture - Preliminary Abdomen 08/13/17 14:30 Blood Culture - Preliminary Blood No Growth after 48 hours Assessment and Plan Plan: impression Present on admission febrile leukocytosis sepsis suspect due to right buttock abscess new onset hypertension essential Hypothyroid on supplements Present on admission right posterior buttocks area extending into right flank with increase redness and tenderness with purulent drainage Plan Surgical service to discuss with infectious disease Dr. Britt recommendations about applying the wound VAC to the area will defer to infectious disease await the recommendations Follow-up on pending cultures Pain control DVT and GI prophylaxis Resume home meds as appropriate IV for hydration Continue IV vancomycin and kefzol as ordered The above impression and plan of care have been discussed and directed by signing physician. Leatha Kee nurse practitioner acting as scribe for signing physician.
[2017-03-18] MEDS: LEVOTHYROXINE 100 MCG TAB PO SCH (06:50)
[2017-03-18] MEDS: MULTIVITAMINS, THERA 1 EACH TAB PO SCH (07:41)
[2017-03-18] MEDS: ceFAZolin 2 GM in SODIUM CHLORIDE 0.9% 100 ML IVPB SCH (07:41)
[2017-03-18] MEDS: amLODIPine 5 MG TAB PO SCH (07:41)
[2017-03-18] MEDS: ENOXAPARIN 40 MG/0.4 ML SYRINGE SQ SCH (07:41)
[2017-03-18] MEDS: SODIUM CHLORIDE 0.9% 1,000 ML IV SCH (07:41)
[2017-03-18] MEDS: PANTOPRAZOLE 40 MG TABLET PO SCH (07:41)
[2017-03-18] MEDS: LISINOPRIL 20 MG TAB PO SCH (07:41)
[2017-03-18] MEDS: CHOLECALCIFEROL 1,000 UNIT TAB PO SCH (07:41)
[2017-03-18 07:54] VITALS: BP 134/79; PULSE 68; RESP 16; TEMP 98.8
[2017-03-18 08:39] LABS: Basophils % (A) 0 %; CH 32.1; CHCM 32.9; Eosinophils # (A) 0.2 k/uL (0-0.7); Eosinophils % (A) 5 %; HCT 37.4 % (34.0-46.0); HDW 2.57; Luc # (Auto) 0.09; Luc % (Auto) 2; Lymphocytes # (A) 0.9 k/uL (1.0-4.8); Lymphocytes % (A) 22 %; MCH 31.4 pg (25.0-35.0); MCHC 32.1 g/dL (31.0-37.0); MCV 97.9 fL (80.0-100.0); Mean Platelet Volume 7.6; Monocytes # (A) 0.2 k/uL (0-1.0); Monocytes % (A) 5 %; Neutrophils # (A) 2.7 k/uL (1.3-7.7); Neutrophils % (A) 66 %; RBC 3.82 m/uL (3.80-5.40); RDW 13.1 % (11.5-15.5)
--- NOTE | 2017-03-18 08:41 | PN ---
DATE OF SERVICE: 03/17/17 The patient is a pleasant 71 -year-old white female who underwent I&D of her right gluteal abscess. Culture was obtained and pending at the current time. A bandage was placed over a packed wound and her pressure is off this area. She states feels much better. She did have a restful night. Her vital signs are stable and she is afebrile. Her first culture is back with a presumptive Staph aureus with a few gram positive cocci in clusters. PHYSICAL EXAMINATION: HEENT: She is alert and oriented times three. Neck is supple. No JVD. Heart regular rate and rhythm. Lungs clear to auscultation. Abdomen is soft. Nontender. No rebound, rigidity or guarding. Extremities no cyanosis, clubbing or jaundice. IMPRESSION: 1. Acute cellulitis abscess of the right gluteal area. 2. Status post I&D of this area. PLAN: continue postoperative care. Await final results from intraoperative cultures, to figure out final antibiotic choice. SHAE
[2017-03-18 09:07] LABS: Anion Gap 9 mmol/L; Blood Urea Nitrogen 6 mg/dL (7-17); Calcium 8.6 mg/dL (8.4-10.2); Carbon Dioxide 27 mmol/L (22-30); Chloride 107 mmol/L (98-107); Glucose 92 mg/dL (74-99); Non-African American GFR(MDRD) >60 (>60 ml/min/1.73 sqM); Potassium 3.6 mmol/L (3.5-5.1); Sodium 143 mmol/L (137-145)
--- NOTE | 2017-03-20 06:26 | DS ---
DATE OF ADMISSION: 03/14/2017 DATE OF DISCHARGE: 03/18/2017 Allergies to BACTRIM. DISCHARGE MEDICATIONS: 1. Keflex 500 mg q.8. 2 Fosamax 70 mg one tablet on Wednesday. 3. Lipitor 10 mg q. day. 4. Vitamin D. 5. Synthroid 100 mcg every Wednesday, Wednesday, Wednesday, and Wednesday. 6. ( ) 800 b.i.d. 7. Amlodipine/benazepril 5/20 one daily. She is to follow up with acute wound care center next. Follow up with me in 2 weeks. FINAL DIAGNOSES: 1. Acute cellulitis and abscess of the right buttocks. 2. Status post incision and drainage and packing of the abscess. 3. Hyperlipidemia. 4. Hypothyroidism. 5. Hypertension. 6. Leukocytosis. HOSPITAL COURSE: Candace Christina is a pleasant 71 -year-old white female who was admitted to the hospital with acute abscess and cellulitis of the right buttocks. It started as a small ingrown hair/furuncle "pimple" in her right buttocks around her waistline. It proceeded to have a lot of local discharge and within 24 hours swelled to beyond her control. She went to the urgent care center and was placed on Bactrim. The patient will be discharged with the above instructions, wound care and Infectious Disease continue to monitor. SHAE
--- NOTE | 2017-03-22 10:03 | CDI ---
In responding to this query, please exercise your independent professional judgment. The [facility] Coding Staff and Clinical Documentation Specialists appreciate your assistance in clarifying documentation, maintaining compliance with coding guidelines, accurately documenting patients condition and capturing severity of illness. The fact that a question is asked does not imply that any particular answer is desired or expected. Communication forms are a method of clarifying documentation and are not made part of the Legal Health Record. Thank you in advance for your clarification. Last Revision, June 2015 Shalom Mccarthy [address] [place] [address] Documentation Clarification Form Date: 03/22/2017 9:40:00 AM From: Dominga Bárbara Phone: Admit Date: 03/14/2017 3:18:00 PM Patient Name: Candace Christina Visit Number: [id number] Discharge Date: Dr. Navid Mehta Sepsis is documented in Leatha Kee's progress notes on 03/16 and 03/17 but not in the discharge summary. Patient history/risk factors: Patient was admitted with abcess and cellulitis of the upper buttock. Clinical Indicators: Febrile leukocytosis. Lab findings: WBC 10.7, lactic acid 1.6 Vital Signs: T. 98.1, P. 92, R. 20, BP 121/72 Treatment: IV Cefazolin & IV Vancomycin Consults: Infectious disease consult documented sepsis In your professional opinion, can you please clarify if Sepsis was Ruled In or Ruled Out? Other Unable to determine Please document in your discharge summary in order to capture severity of illness and risk of mortality. Include clinical findings that support your diagnosis. FYI: Press F11 to launch patient chart. If you have a question about this query, please contact Jazmin Oliver Architectural Drafting Instructor at [phone] between 8am and 5pm. SHAE
--- NOTE | 2017-03-31 10:09 | CDI ---
In responding to this query, please exercise your independent professional judgment. The [facility] Coding Staff and Clinical Documentation Specialists appreciate your assistance in clarifying documentation, maintaining compliance with coding guidelines, accurately documenting patients condition and capturing severity of illness. The fact that a question is asked does not imply that any particular answer is desired or expected. Communication forms are a method of clarifying documentation and are not made part of the Legal Health Record. Thank you in advance for your clarification. Last Revision, June 2015 Shalom Mccarthy [address] [facility] [place] [address] Documentation Clarification Form Date: 03/22/2017 9:40:00 AM From: Dominga Bárbara Phone: Admit Date: 03/14/2017 3:18:00 PM Patient Name: Candace Christina Visit Number: [id number] Discharge Date: Dr. Navid Mehta Sepsis is documented in Leatha Kee's progress notes on 03/16 and 03/17 but not in the discharge summary. Patient history/risk factors: Patient was admitted with abcess and cellulitis of the upper buttock. Clinical Indicators: Febrile leukocytosis. Lab findings: WBC 10.7, lactic acid 1.6 Vital Signs: T. 98.1, P. 92, R. 20, BP 121/72 Treatment: IV Cefazolin & IV Vancomycin Consults: Infectious disease consult documented sepsis In your professional opinion, can you please clarify if Sepsis was Ruled In or Ruled Out? Other Unable to determine Please document in your discharge summary in order to capture severity of illness and risk of mortality. Include clinical findings that support your diagnosis. FYI: Press F11 to launch patient chart. If you have a question about this query, please contact Jazmin Oliver Public Policy Mediator at [phone] between 8am and 5pm. SHAE
== END 2017-03-18 15:03 | disposition home health service (06) | DRG 603 ==
LOC: EC 13:27 → 4MS4W 15:18
PROVIDERS: ADMIT Family Medicine; ATTEND Family Medicine
PROC: 0H98XZX Drainage of Buttock Skin, External Approach, Diagnostic (ICD-10-PCS; principal; 2017-03-16 17:15)
DX: L02.31 Cutaneous abscess of buttock (principal); I10 Essential (primary) hypertension; E03.9 Hypothyroidism, unspecified; L03.317 Cellulitis of buttock; E78.5 Hyperlipidemia, unspecified; R73.9 Hyperglycemia, unspecified; Z79.899 Other long term (current) drug therapy; Z88.2 Allergy status to sulfonamides; Z88.1 Allergy status to other antibiotic agents
CPT/HCPCS: 36415; 80048; 80053; 80202; 82550; 82553; 83036; 83605; 83735; 84100; 85025; 85610; 85730; 87040; 87070; 87075; 87077; 87186; 87205; 93005; 96365; 96367; 96375; 99285

== ENCOUNTER → 2018-04-22 | Outpatient (CLI) | payer MEDICARE, OTHER ==
[2018-04-22 10:44] LABS: HCT 41.3 % (34.0-46.0); HGB 13.3 gm/dL (11.4-16.0); MCH 30.9 pg (25.0-35.0); MCHC 32.1 g/dL (31.0-37.0); MCV 96.3 fL (80.0-100.0); Mean Platelet Volume 7.8; Platelet Count 156 k/uL (150-450); RBC 4.29 m/uL (3.80-5.40); RDW 12.4 % (11.5-15.5); WBC 3.6 k/uL (3.8-10.6)
[2018-04-22 11:00] LABS: ALT 24 U/L (9-52); AST 33 U/L (14-36); Albumin 3.8 g/dL (3.5-5.0); Alkaline Phosphatase 55 U/L (38-126); Anion Gap 5 mmol/L; Blood Urea Nitrogen 17 mg/dL (7-17); Calcium 9.3 mg/dL (8.4-10.2); Carbon Dioxide 30 mmol/L (22-30); Chloride 107 mmol/L (98-107); Cholesterol 154 mg/dL (<200); Glucose 93 mg/dL (74-99); HDL Cholesterol 64 mg/dL (40-60); LDL Cholesterol,Calculated 81 mg/dL (0-99); Potassium 5.2 mmol/L (3.5-5.1); Sodium 142 mmol/L (137-145); Total Bilirubin 0.6 mg/dL (0.2-1.3); Total Protein 6.4 g/dL (6.3-8.2); Triglycerides 47 mg/dL (<150)
[2018-04-22 11:14] LABS: T4, Free (Free Thyroxine) 1.53 ng/dL (0.78-2.19)
[2018-04-22 17:02] LABS: Hemoglobin A1C 5.4 % (4.0-6.0)
== END | disposition home or self-care (01) ==
LOC: LABWHC1 10:07
PROVIDERS: ATTEND Family Medicine
DX: E03.9 Hypothyroidism, unspecified (principal); E78.5 Hyperlipidemia, unspecified; I10 Essential (primary) hypertension; R73.9 Hyperglycemia, unspecified
CPT/HCPCS: 36415; 80053; 80061; 83036; 84439; 84443; 85027

== ENCOUNTER → 2018-08-26 | Outpatient (CLI) | payer MEDICARE, OTHER ==
--- NOTE | 2018-08-30 07:46 | MM ---
Reason for exam: screening (asymptomatic). Last mammogram was performed 1 year and 3 months ago. History: Patient is postmenopausal. Family history of breast cancer in mother at age 62. Benign excisional biopsy of the left breast, 1988. Physical Findings: A clinical breast exam by your physician is recommended on an annual basis and results should be correlated with mammographic findings. MG 3D Screening Mammo W/Cad Bilateral CC and MLO view(s) were taken. Prior study comparison: June 02, 2017, bilateral MG 3d screening mammo w/cad. March 26, 2016, mammogram, performed at [facility]. There are scattered fibroglandular densities. No significant changes when compared with prior studies. ASSESSMENT: Negative, BI-RAD 1 RECOMMENDATION: Routine screening mammogram of both breasts in 1 year.
== END | disposition home or self-care (01) ==
LOC: RADMAMWWP 07:24
PROVIDERS: ATTEND Family Medicine
DX: Z12.31 Encounter for screening mammogram for malignant neoplasm of breast (principal)
CPT/HCPCS: 77063; 77067

== ENCOUNTER → 2019-06-12 | Outpatient (CLI) | payer MEDICARE, OTHER ==
--- NOTE | 2019-06-12 07:40 | US ---
EXAMINATION TYPE: US liver DATE OF EXAM: 06/12/2019 COMPARISON: NONE CLINICAL HISTORY: R94.5 Elevated LFTs. Asymptomatic EXAM MEASUREMENTS: Liver Length: 14.9 cm Gallbladder Wall: 0.2 cm CBD: 0.7 cm Right Kidney: 9.8 x 4.4 x 4.7 cm Pancreas: wnl Liver: wnl Gallbladder: fold seen, wnl Evidence for sonographic Woody's sign: no CBD: wnl Right Kidney: wnl Liver is nonenlarged and appears homogeneous. No cholelithiasis or pericholecystic fluid. Right kidne y demonstrates no evidence of hydronephrosis or nephrolithiasis. Visualized portions of the pancreas are unremarkable with suboptimal visualization of the pancreatic head and tail given overlying bowel gas. IMPRESSION: Homogeneous hepatic echotexture despite the known abnormal liver function tests. Common b ile duct is upper limits of normal however no other sonographic evidence of acute cholecystitis.
== END | disposition home or self-care (01) ==
LOC: RADUSWWP 06:44
PROVIDERS: ATTEND Family Medicine
DX: R94.5 Abnormal results of liver function studies (principal)
CPT/HCPCS: 76705

== ENCOUNTER → 2019-07-18 | Outpatient (CLI) | payer MEDICARE, OTHER ==
[2019-07-18 10:51] LABS: HGB 13.8 gm/dL (11.4-16.0); MCH 32.8 pg (25.0-35.0); MCHC 33.7 g/dL (31.0-37.0); MCV 97.4 fL (80.0-100.0); Mean Platelet Volume 8.1; Platelet Count 201 k/uL (150-450); RBC 4.21 m/uL (3.80-5.40); RDW 12.6 % (11.5-15.5); WBC 4.6 k/uL (3.8-10.6)
[2019-07-18 11:31] LABS: Prothrombin Time 10.4 sec (9.0-12.0)
[2019-07-18 17:18] LABS: Ferritin 74.9 ng/mL (10.0-291.0)
[2019-07-18 17:23] LABS: % Iron Saturation 28.35 (12.00-45.00); Albumin 4.4 g/dL (3.80-4.90); Albumin/Globulin Ratio 2.59 (1.60-3.17); Bilirubin, Conjugated 0.2 mg/dL (0.20-0.40); Bilirubin,Unconjugated 0.5 mg/dL; Globulin 1.7 g/dL (1.6-3.3); Total Bilirubin 0.7 mg/dL (0.2-1.2); Total Protein 6.1 g/dL (6.2-8.2)
[2019-07-19 11:52] LABS: Ceruloplasmin 32.2 mg/dL (20.0-60.0)
== END | disposition home or self-care (01) ==
LOC: LABWHC1 09:41
DX: R94.5 Abnormal results of liver function studies (principal); R04.0 Epistaxis
CPT/HCPCS: 36415; 80076; 82390; 82728; 83516; 83540; 83550; 85027; 85610; 86038

== ENCOUNTER → 2019-08-29 | Outpatient (CLI) | payer MEDICARE, OTHER ==
--- NOTE | 2019-08-30 11:20 | MM ---
Reason for exam: screening (asymptomatic). Last mammogram was performed 1 year ago. History: Patient is postmenopausal. Family history of breast cancer in mother at age 62. Benign excisional biopsy of the left breast, 1988. Physical Findings: A clinical breast exam by your physician is recommended on an annual basis and results should be correlated with mammographic findings. MG 3D Screening Mammo W/Cad Bilateral CC and MLO view(s) were taken. Prior study comparison: August 26, 2018, bilateral MG 3d screening mammo w/cad. June 02, 2017, bilateral MG 3d screening mammo w/cad. There are scattered fibroglandular densities. No suspicious abnormality. No significant changes when compared with prior studies. ASSESSMENT: Negative, BI-RAD 1 RECOMMENDATION: Routine screening mammogram of both breasts in 1 year.
== END | disposition home or self-care (01) ==
LOC: RADMAMWWP 10:59
PROVIDERS: ATTEND Family Medicine
DX: Z12.31 Encounter for screening mammogram for malignant neoplasm of breast (principal); Z80.3 Family history of malignant neoplasm of breast
CPT/HCPCS: 77063; 77067

== ENCOUNTER → 2019-12-26 | Outpatient (CLI) | payer MEDICARE, OTHER ==
[2019-12-26 12:09] LABS: HCT 43.8 % (34.0-46.0); HGB 14.3 gm/dL (11.4-16.0); MCH 32.1 pg (25.0-35.0); MCHC 32.6 g/dL (31.0-37.0); MCV 98.4 fL (80.0-100.0); Mean Platelet Volume 7.6; Platelet Count 192 k/uL (150-450); RBC 4.45 m/uL (3.80-5.40); RDW 12.5 % (11.5-15.5); WBC 4.4 k/uL (3.8-10.6)
[2019-12-26 12:28] LABS: Prothrombin Time 10.4 sec (9.0-12.0)
[2019-12-26 19:13] LABS: Albumin 4.3 g/dL (3.80-4.90); Albumin/Globulin Ratio 2.26 (1.60-3.17); Bilirubin, Conjugated 0.3 mg/dL (0.20-0.40); Bilirubin,Unconjugated 0.6 mg/dL; Chol/HDL Ratio 3.27; Globulin 1.9 g/dL (1.6-3.3); Total Bilirubin 0.9 mg/dL (0.2-1.2); Total Protein 6.2 g/dL (6.2-8.2)
== END | disposition home or self-care (01) ==
LOC: LABWHC1 11:04
PROVIDERS: ATTEND Physician Assistant
DX: R94.5 Abnormal results of liver function studies (principal); E78.00 Pure hypercholesterolemia, unspecified
CPT/HCPCS: 36415; 80061; 80076; 85027; 85610